=== PATIENT | male | born 2000 | race Caucasian/White ===

== ENCOUNTER 2018-12-05 21:42 | Emergency (ER) | payer BC ==
[~2018-12-05] VITALS: Ht 190.5 cm; Wt 79.5 kg
[2018-12-05 21:56] VITALS: BP 153/118
[2018-12-06 01:20] VITALS: PULSE 65
== END 2018-12-06 00:19 | disposition home or self-care (01) ==
LOC: COL.ER 21:42
DX: S01.511A Laceration without foreign body of lip, initial encounter (principal); W50.0XXA Accidental hit or strike by another person, initial encounter; Y92.838 Other recreation area as the place of occurrence of the external cause

== ENCOUNTER → 2018-12-10 | Emergency (ER) | payer BC ==
[2018-12-10 16:34] VITALS: BP 154/86; PULSE 74; TEMP 98.5
== END ==
LOC: COL.ER 16:11
DX: S01.511D Laceration without foreign body of lip, subsequent encounter (principal); Y99.9 Unspecified external cause status